=== PATIENT | male | born 1980 | race Caucasian/White ===

== ENCOUNTER 2024-02-16 15:23 | Emergency (ER) | payer OTHER ==
[~2024-02-16] VITALS: Ht 175.3 cm; Wt 127.3 kg
[~2024-02-16 15:23] MED LIST: ANTIVERT 25MG25 MG PO; CIPRO 500MG TA500 MG PO; COZAAR 50MG50 MG/TAB PO; FLOMAX 0.40.4 MG/CAP PO; HYGROTON 2525 MG/TAB PO; MEDROL 4MG DOSPA4 MG PO; MOBIC15 MG PO; NORCO 325 MG-51 TAB PO; NORCO 325 MG-7.1 TAB PO; PERCOCET 325 MG1 TA2 PO; PRINIVIL10 MG PO; ULTRAM 50MG TAB50 MG; ZESTRIL 10MG10 MG PO; ZESTRIL 20MG TA20 MG PO
[2024-02-16 15:31] VITALS: TEMP 97.9
[2024-02-16 15:51] LABS: BASO % 0.4 % (0.0-2.0); EOS # 0.2 K/mm3 (0.0-0.7); EOS % 1.6 % (0.0-4.0); GRAN # 6.9 K/mm3 (1.4-6.5); GRAN % 71.7 % (42.2-75.2); HEMATOCRIT 45.4 % (42.0-52.0); HEMOGLOBIN 14.9 g/dl (13.5-18.0); LYMPH # 1.6 K/mm3 (1.2-3.4); LYMPH % 16.4 % (20.0-51.0); MEAN CELL VOLUME 83 fl (80.0-100.0); MEAN CORPUSCULAR HEMOGLOBIN 27 pg (27-31); MEAN CORPUSCULAR HGB CONC 33 g/dl (33.0-37.0); MEAN PLATELET VOLUME 9.3 fl (7.4-10.4); MONO # 0.9 K/mm3 (0.1-0.6); MONO % 9.7 % (1.7-9.3); PLATELET COUNT 327 K/mm3 (130-400); RED BLOOD COUNT 5.45 M/mm3 (4.20-5.60); REDCELL DISTRIBUTION WIDTH-CV 14.5 % (11.5-14.5)
[2024-02-16 16:10] LABS: ALBUMIN 3.9 g/dL (3.5-5.0); BILIRUBIN,TOTAL 0.7 mg/dL (0.2-1.2); CALCIUM 9.2 mg/dL (8.4-10.2); CREATININE, serum 0.94 mg/dL (0.72-1.25); POTASSIUM 3.7 mEq/L (3.5-4.5); TOTAL PROTEIN 7.9 g/dl (6.2-8.1)
[2024-02-16] MEDS ORDERED: hydrALAZINE 20 MG/ML 1 ML VIAL IV ONE (16:15)
[2024-02-16] MEDS ORDERED: Ketorolac 15 MG/ML VIAL IV ONE (16:30)
[2024-02-16] MEDS ORDERED: diphenhydrAMINE 50 MG/ML 1 ML VIAL IV ONE (16:30)
[2024-02-16] MEDS ORDERED: Ondansetron 4 MG/2 ML VIAL IV ONE (16:30)
[2024-02-16] MEDS ORDERED: ZESTRIL 20MG TA20 MG PO (17:02)
[2024-02-16] MEDS ORDERED: HYGROTON 2525 MG/TAB PO (17:02)
[2024-02-16 17:20] VITALS: BP 157/82; PULSE 89
== END 2024-02-16 17:20 | disposition home or self-care (01) ==
LOC: COL.ER 15:23
PROVIDERS: Physician Assistant
DX: I16.0 Hypertensive urgency (principal)
CPT/HCPCS: J0360; J1200; J1885; J2405